=== PATIENT | male | born 1970 | race Caucasian/White ===

== ENCOUNTER 2018-07-21 21:42 | Emergency (ER) | payer OTHER, MEDICAID ==
[~2018-07-21] VITALS: Ht 175.3 cm; Wt 72.6 kg
[2018-07-21 21:42] VITALS: BP_SYST 115
[2018-07-21] MEDS ORDERED: ACETAMINOPHEN 500 MG TABLET PO ONE (22:30)
[2018-07-21] MEDS ORDERED: cefTRIAXone 1 GM in LIDOCAINE 1%, 20 ML MDV 2.1 ML IM ONE (23:00)
[2018-07-22 00:31] VITALS: BP_SYST 110
== END 2018-07-22 00:31 | disposition home or self-care (01) ==
LOC: SED 21:42
DX: J02.9 Acute pharyngitis, unspecified (principal); Z86.2 Personal history of diseases of the blood and blood-forming organs and certain disorders involving the immune mechanism
CPT/HCPCS: 71045; 96372; 99283; J0696; J2001